=== PATIENT | female | born 1945 | race Two or more races ===

== ENCOUNTER 2024-06-19 07:05 | Emergency (ER) | payer OTHER ==
[~2024-06-19] VITALS: Ht 167.6 cm; Wt 81.6 kg
[2024-06-19] MEDS ORDERED: CHILDREN'S ASPI81 MG (07:30)
[2024-06-19] MEDS ORDERED: COZAAR50 MG (07:32)
[2024-06-19] MEDS ORDERED: LEVOTHYROXINE25 MCG (07:33)
[2024-06-19] MEDS ORDERED: ATORVASTATIN CA20 MG (07:34)
== END 2024-06-19 09:27 | disposition home or self-care (01) ==
LOC: ER 07:06
DX: L02.212 Cutaneous abscess of back [any part, except buttock and flank] (principal); Z04.89 Encounter for examination and observation for other specified reasons; I10 Essential (primary) hypertension; E03.9 Hypothyroidism, unspecified; E11.9 Type 2 diabetes mellitus without complications